=== PATIENT | male | born 1965 | race Caucasian/White ===

== ENCOUNTER 2016-08-17 06:12 | Day surgery (SDC) | payer OTHER ==
[~2016-08-17 06:12] MED LIST: LACTATED RINGERS 1,000 ML ONE
[2016-08-17 08:20] VITALS: BP 139/78; TEMP 98.8; O2SAT 99
[2016-08-17] MEDS ORDERED: PROPOFOL 200 MG/20 ML VIAL IV ONE (12:00)
--- NOTE | 2016-08-17 13:37 | OP ---
DATE OF PROCEDURE: 08/17/16 PREOPERATIVE DIAGNOSIS: 1. Colon cancer screen. POSTOPERATIVE DIAGNOSIS: 1. Normal colonoscopy to the cecum. PROCEDURE: 1. Colonoscopy. SURGEON: Josafat Griffith MD. ANESTHESIA: MAC by Trav Whitehead CRNA. ESTIMATED BLOOD LOSS: None. COMPLICATIONS: None apparent. TECHNIQUE: After informed consent was obtained from the patient, the patient was taken to the Endoscopy Suite and put in the left lateral decubitus position. After adequate IV sedation was obtained, a digital rectal exam was performed which revealed decreased sphincter tone, no intraluminal masses, and a smooth, normal sized, anodular prostate. The colonoscope was then passed with good visualization all the way through the colon. The bowel prep was excellent. The cecum was identified by the presence of ileocecal valve and appendiceal orifice. The scope was then withdrawn slowly over the next 8 minutes and a good look at the entire colonic mucosa was obtained. There were no polyps, diverticular disease, masses, or any other pathology identified. The scope was removed. The patient tolerated the procedure well. The patient was transported to the outpatient area in good condition. He will followup on a p.r.n. basis. I have encouraged him to consume a high fiber diet. #[id number] [facility]
== END 2016-08-17 08:15 | disposition home or self-care (01) ==
LOC: AMB 06:12
PROVIDERS: ATTEND Family Medicine
DX: Z12.11 Encounter for screening for malignant neoplasm of colon (principal); I10 Essential (primary) hypertension; N40.0 Benign prostatic hyperplasia without lower urinary tract symptoms; Z79.899 Other long term (current) drug therapy
CPT/HCPCS: 00810; 45378; J3490; J7120

== ENCOUNTER → 2017-11-25 | Outpatient (CLI) | payer OTHER | LOC: GMAJ 15:01 | PROVIDERS: ATTEND Family Medicine | DX: Z00.00 Encounter for general adult medical examination without abnormal findings (principal) ==

== ENCOUNTER → 2018-05-18 | Outpatient (CLI) | payer OTHER ==
--- NOTE | 2018-05-18 13:08 | MRI ---
Study: MRI of the Right Ankle. Indication: ANKLE PAIN Technique: Multiplanar, multi sequence MRI of the right ankle was obtained without intravenous contrast. Comparison: None. Findings: Sequela of high-grade partial-thickness undersurface tearing of the fibular attachment anterior talofibular ligament noted with associated edema in the inferolateral margin lateral malleolus. High-grade partial-thickness tearing distal calcaneofibular ligament noted as well as a sprain of the anterior tibiofibular ligament and deep deltoid ligament. There is mild valgus angulation of the hindfoot. Subtle grade 3/4 chondrosis noted at the anteromedial most margin of the joint space. Trace subchondral marrow change noted in the lateral margin talar dome with suspected overlying chondrosis. Small tibiotalar and subtalar joint effusions. Tiny talonavicular joint effusion. No fracture. Trace tenosynovitis medial tendons and peroneal tendons. Insertional posterior tibialis tendinosis without tear. Tendinosis of the peroneus brevis and longus tendons noted inferior to the lateral malleolus without transection. Anterior tendons and Achilles tendon intact. Trace retrocalcaneal bursal fluid. Impression: Sequela of an inversion injury with high-grade partial tearing anterior talofibular ligament and calcaneofibular ligament as well as sprains of the anterior tibiofibular ligament and deep deltoid ligament. Multifocal tibiotalar chondrosis as detailed above. Small tibiotalar and subtalar joint effusions. Trace tenosynovitis medial tendons and peroneal tendons with tendinosis of the peroneal tendons as well as insertional posterior tibialis tendinosis. No tendon tear. Electronically signed by: Javier Rendon MD 05/18/2018 1:07 PM [facility]
== END ==
LOC: MRI 11:35
PROVIDERS: ATTEND Nurse Practitioner Family
DX: M25.571 Pain in right ankle and joints of right foot (principal); S99.911A Unspecified injury of right ankle, initial encounter; M25.474 Effusion, right foot

== ENCOUNTER → 2018-05-23 | Outpatient (CLI) | payer OTHER | LOC: GMAJ 16:41 | PROVIDERS: ATTEND Family Medicine | DX: R53.83 Other fatigue (principal) ==

== ENCOUNTER → 2018-06-03 | Outpatient (CLI) | payer OTHER ==
--- NOTE | 2018-06-03 10:05 | RAD ---
EXAM DESCRIPTION: Ankle,Right 3 Views CLINICAL HISTORY: 53 years Male, PAIN IN RIGHT ANKLE AMD JOINTS OF RIGHT FOOT COMPARISON: None available. TECHNIQUE: AP, oblique and lateral radiographs. FINDINGS: The visualized bones appear well mineralized. No acute fracture or dislocation. The ankle mortise is intact. The soft tissues appear grossly unremarkable. IMPRESSION: No gross abnormality is noted in the right ankle. Electronically signed by: Melanie Ramirez MD 06/03/2018 10:03 AM [facility]
== END ==
LOC: RAD 08:48
PROVIDERS: ATTEND Orthopaedic Surgery
DX: M25.571 Pain in right ankle and joints of right foot (principal)

== ENCOUNTER → 2018-12-29 | Outpatient (CLI) | payer OTHER | LOC: GMAJ 10:31 | PROVIDERS: ATTEND Family Medicine | DX: E29.1 Testicular hypofunction (principal); I10 Essential (primary) hypertension ==